=== PATIENT | male | born 1955 | race Caucasian/White ===

== ENCOUNTER 2023-03-31 10:54 | Emergency (ER) | payer MEDICARE, SELFPAY ==
[2023-03-31 10:58] VITALS: BP 138/80; PULSE 110; RESP 18; TEMP 37.5; O2SAT 95; BMI 26.8
--- NOTE | 2023-03-31 11:14 | CRLHL7_ITS ---
For Patients: As a result of the Century Cures Act, medical imaging exams and procedure reports are released immediately into your electronic medical record. You may view this report before your referring provider. If you have questions, please contact your health care provider. INDICATION: . cough covid exp ? TECHNIQUE: Chest 1 views. COMPARISON: None. FINDINGS: Lordotic view. Superimposition of the soft tissues of the head neck overlying the lung apices degrade evaluation at this location. Lungs: Normal lung volume. No consolidation. Multiple calcified granulomas. Pleura: No pleural effusion or pneumothorax. Heart and Mediastinum: Normal heart size. The great vessels of the thorax are unremarkable. Bones: No acute displaced osseous process. Surgical screw in the left glenoid. Surgical clips overlie the soft tissues of the neck. IMPRESSION: No consolidation. Dictated by Kemal Bass MD @ 03/31/2023 12:42:17 PM (Electronically Signed)
--- NOTE | 2023-03-31 11:22 | ED_ITS ---
HPI - General Adult General Date Seen: 03/31/23 Chief complaint: Cough Stated complaint: has pneumonia, thinks he has covid Time Seen by Provider: 03/31/23 11:03 Source: patient Mode of arrival: ambulatory Limitations: no limitations History of Present Illness HPI narrative: Patient is a 67-year-old male who tells me that he had been feeling sick since March 01 with ?the crud?. He says he was seen at [facility] last week, they told him that his x-ray may or may not show pneumonia but they decided to treat him with a Z-Sukhjinder. He thinks he felt a little bit better while on the antibiotic although symptoms did not completely resolve. [place] to the cabin with friends and then 2 days ago found out that 1 of those friends tested positive for COVID. For the past couple of days he feels that his cough is somewhat worse. He has had chills no documented fever. Does not have chest pain, not short of breath. He denies tobacco use, generally healthy aside from hypertension, no other medications. Related Data Home Medications Medication Instructions Recorded Confirmed losartan 50 mg tablet 50 mg PO DAILY 03/31/23 03/31/23 simvastatin 40 mg tablet 40 mg PO QPM 03/31/23 03/31/23 Previous Rx's Medication Instructions Recorded nirmatrelvir 300 mg (150 mg See Rx Instructions PO .COMPLEX 03/31/23 x2)-ritonavir 100 mg tablet,dose #30 ea pack (Paxlovid) Allergies Allergy/AdvReac Type Severity Reaction Status Date / Time No Known Drug Allergies Allergy Verified 03/31/23 11:01 Review of Systems Status of ROS: Reports: 6 or more systems reviewed and unremarkable except as noted in History and below [facility] Social History Smoking Status: Never smoker How often do you have a drink containing alcohol: monthly or less AUDIT-C Alcohol total score: 1 Non-prescribed substance use: denies use Exam Narrative: Exam Narrative: Vital signs as noted above. In general, an alert, well-appearing patient. Head: Normocephalic, atraumatic. Eyes: Pupils are equal reactive. Extraocular movements are full. Conjunctivae are normal. ENT: Mucous membranes are moist. Throat is normal. Neck: Supple without lymphadenopathy. Heart: Regular rate and rhythm. No murmur or rub. Lungs: Clear bilaterally. No increased work of breathing, crackles or wheezes. Abdomen: Soft and nontender. No organomegaly. Extremities: Well perfused. No edema. No calf tenderness. Pulses intact. Neurologic: Patient is alert and oriented to person and place. Speech is fluent. Face is symmetric. Moves all extremities equally. Affect: Normal. Skin: Warm and dry. Well perfused. Const: Vital Signs, click to edit/add: Vital Signs - 24 hr 03/31/23 10:58 Temperature 99.5 F Pulse Rate [Right Pulse Oximeter] 110 H Respiratory Rate 18 Blood Pressure [Ri ght Upper Arm] 138/80 Pulse Oximetry 95 Oxygen Delivery Me thod Room Air Documenting provider has reviewed patient's vital signs: yes Course Course Hospital Course: Exam is reassuring, he was mildly tachycardic, O2 sats are reasonable. His lungs are clear, but I think given the progression of symptoms I would recommend repeating a chest x-ray. If he has a significant infiltrate today I would at a different antibiotic. If lungs are clear, COVID test is pending and will treat accordingly. Chest x-ray by my review was negative. Final radiology read is negative as well. We will go ahead and treat with Paxlovid, he does take simvastatin and we discussed holding that medication. Return for worsening, primary care follow-up if not improving over the next 7-10 days. Vital Signs Vital signs: Initial Vital Signs Temperature 99.5 F 03/31/23 10:58 Temperature Source Temporal Artery Scan 03/31/23 10:58 Pulse Rate 110 H 03/31/23 10:58 Respiratory Rate 18 03/31/23 10:58 Blood Pressure 138/80 03/31/23 10:58 Blood Pressure Mean 99 03/31/23 10:58 Blood Pressure Position Sitting 03/31/23 10:58 Pulse Oximetry 95 03/31/23 10:58 Oxygen Delivery Method Room Air 03/31/23 10:58 Vital Signs Temperature 99.5 F 03/31/23 10:58 Pulse Rate 110 H 03/31/23 10:58 Respiratory Rate 18 03/31/23 10:58 Blood Pressure 138/80 03/31/23 10:58 Pulse Oximetry 95 03/31/23 10:58 Oxygen Delivery Method Room Air 03/31/23 10:58 Temperature 99.5 F 03/31/23 10:58 Pulse Rate 110 H 03/31/23 10:58 Respiratory Rate 18 03/31/23 10:58 Blood Pressure 138/80 03/31/23 10:58 Pulse Oximetry 95 03/31/23 10:58 Oxygen Delivery Method Room Air 03/31/23 10:58 Medical Decision Making Lab Data Labs: Lab Results 03/31/23 Range/Units 11:09 SARS-CoV-2 (PCR) POSITIVE SARS-CoV-2 A (Negative) Influenza Type A (PCR) Negative PCR FLU A (Negative) Influenza Type B (PCR) Negative PCR FLU B (Negative) RSV (PCR) Negative PCR RSV (Negative) Discharge Plan Discharge Clinical Impression: COVID-19 Patient Disposition: Home, Self-Care Condition: Stable Instructions: COVID-19 (Coronavirus Disease 2019) (ED) Additional Instructions: Paxlovid as prescribed. Return for worsening symptoms such as high fevers, shortness of breath, or other acute worsening. Primary care follow-up if not improving over the next 7-10 days. Hold your simvastatin for 1 week at the start of your Paxlovid. Prescriptions: New Paxlovid 300 mg (150 mg x 2)-100 mg tablets,dose pack See Rx Instructions .ROUTE .COMPLEX Qty: 30 0RF Rx Instructions: take TWO 150 mg tablets of nirmatrelvir with ONE 100 mg tablet of ritonavir twice daily for 5 days No Action losartan 50 mg tablet 50 mg PO DAILY simvastatin 40 mg tablet 40 mg PO QPM Stand Al[facility]: [facility] Inst[facility]
[2023-03-31 12:12] LABS: PCR FLU A Negative PCR FLU A (Negative); PCR FLU B Negative PCR FLU B (Negative); PCR RSV Negative PCR RSV (Negative)
[2023-03-31 12:13] LABS: SARS PCR* POSITIVE SARS-CoV-2 (Negative)
== END 2023-03-31 12:52 | disposition home or self-care (01) ==
PROVIDERS: Emergency Provider Emergency Medicine
DX: U07.1 COVID-19 (principal)
CPT/HCPCS: 71045; 87631; 99283; 99284